=== PATIENT | male | born 1995 | race Caucasian/White ===

== ENCOUNTER 2018-03-28 00:43 | Emergency (ER) | payer MEDICAID ==
[~2018-03-28] VITALS: Ht 162.6 cm; Wt 82.1 kg
--- NOTE | 2018-03-28 00:50 | NUR ---
Pt came in with a laceration on his left 5th finger. He reports accidentally cutting it with a knife at home. He is A, O/4, moves all extremities without difficulty. Awaiting to be seen by MD for eval.
[2018-03-28 00:54] VITALS: BP 139/107
[2018-03-28] MEDS ORDERED: TDAP [DIPH/PERTUSSIS/TET] 0.5 ML VIAL IM ONE ×2 (01:00→01:05)
[2018-03-28] MEDS ORDERED: LIDOCAINE /MPF 1% VIAL 5 ML VIAL ONE (01:05)
--- NOTE | 2018-03-28 01:10 | NUR ---
Wound care done
--- NOTE | 2018-03-28 01:30 | NUR ---
Pt's wound was sutured by Dr. Carrasquillo. Pt tolerated procedure.
--- NOTE | 2018-03-28 01:51 | NUR ---
Patient discharged to home in stable condition. Written and verbal after care instructions given. Patient verbalizes understanding of instruction. Pt ambulatory with a steady gait
== END 2018-03-28 01:53 | disposition home or self-care (01) ==
LOC: ER 00:47
DX: S61.215A Laceration without foreign body of left ring finger without damage to nail, initial encounter (principal); W26.0XXA Contact with knife, initial encounter; Y93.G3 Activity, cooking and baking; Y92.000 Kitchen of unspecified non-institutional (private) residence as the place of occurrence of the external cause; Y99.8 Other external cause status
CPT/HCPCS: 12001; 90471; 90715; 99283; A4606; A6402; J3490; Z7610